=== PATIENT | female | born 1960 | race Caucasian/White ===

== ENCOUNTER → 2017-05-02 | Outpatient (REF) | payer OTHER ==
[~2017-05-02] MED LIST: ACET30TAB PO; COLA100C5 PO; IBUP-1022 PO; ZOFR20TA PO
== END ==
LOC: M SFHCWAGY 08:19
PROVIDERS: ATTEND Nurse Practitioner Women's Health
DX: Z12.4 Encounter for screening for malignant neoplasm of cervix (principal); N95.2 Postmenopausal atrophic vaginitis

== ENCOUNTER → 2017-07-21 | Outpatient (CLI) | payer OTHER ==
[2017-07-21 11:52] LABS: ALBUMIN 4.7 GM/DL (3.2-5.2); ALBUMIN/GLOBULIN RATIO 1.57 (1.00-1.93); ALKALINE PHOSPHATASE 132 U/L (45-117); ALT/SGPT 30 U/L (12-78); ANION GAP 6 MEQ/L (8-16); AST/SGOT 19 U/L (7-37); BILIRUBIN,TOTAL 0.3 MG/DL (0.2-1.0); BLOOD UREA NITROGEN 19 MG/DL (7-18); CALCIUM LEVEL 9.3 MG/DL (8.5-10.1); CARBON DIOXIDE LEVEL 31 MEQ/L (21-32); CHLORIDE LEVEL 104 MEQ/L (98-107); CREATININE FOR GFR 0.64 MG/DL (0.55-1.02); GLOMERULAR FILTRATION RATE > 60.0 (>51); GLUCOSE, FASTING 89 MG/DL (70-105); POTASSIUM SERUM 3.8 MEQ/L (3.5-5.1); SODIUM LEVEL 141 MEQ/L (136-145); TOTAL PROTEIN 7.7 GM/DL (6.4-8.2)
== END ==
LOC: M LAB 11:00
DX: Z01.818 Encounter for other preprocedural examination (principal)

== ENCOUNTER → 2018-08-07 | Outpatient (REF) | payer OTHER ==
[~2018-08-07] MED LIST changes: -ZOFR20TA PO; +ZOFR4TAB16 PO
[2018-08-09 14:16] LABS: HPV HYBRID CAPTURE II Negative (Negative)
== END ==
LOC: M SFHCWAGY 09:02
PROVIDERS: ATTEND Nurse Practitioner Women's Health
DX: Z12.4 Encounter for screening for malignant neoplasm of cervix (principal)
CPT/HCPCS: 87624; G0123

== ENCOUNTER → 2021-03-31 | Outpatient (REF) | payer OTHER, BC ==
[~2021-03-31] MED LIST changes: +ACET-716 PO; -ACET30TAB PO
== END ==
LOC: M SFHCWAGY 14:11
PROVIDERS: ATTEND Nurse Practitioner Women's Health
DX: Z12.4 Encounter for screening for malignant neoplasm of cervix (principal); Z01.419 Encounter for gynecological examination (general) (routine) without abnormal findings

== ENCOUNTER → 2021-04-16 | Outpatient (REF) | payer BC | LOC: M SFHCADAM 07:57 | PROVIDERS: ATTEND Physician Assistant | DX: I10 Essential (primary) hypertension (principal); E78.5 Hyperlipidemia, unspecified ==

== ENCOUNTER 2021-06-22 18:54 | Emergency (ER) | payer BC ==
[~2021-06-22] VITALS: Ht 154.9 cm; Wt 60.8 kg
[2021-06-22] MEDS ORDERED: LISI-898 PO (19:33)
[2021-06-22] MEDS ORDERED: NS 1,000 ML IV ONE (20:05)
[2021-06-22] MEDS ORDERED: MORPHINE 2 MG/ML 1ML VIAL (J2270) IV ONE (20:05)
[2021-06-22] MEDS ORDERED: ONDANSETRON 4MG/2ML VIAL IV ONE (20:05)
--- NOTE | 2021-06-22 20:06 | REP ---
INDICATION: fell COMPARISON: None. TECHNIQUE: AP, lateral, bilateral oblique views right wrist. FINDINGS: There is an oblique mildly displaced fracture involving the distal ulnar metadiaphysis with overlying soft tissue swelling. Distal radius and carpal bones appear intact. IMPRESSION: Mildly displaced oblique fracture of the distal ulnar metadiaphysis. <Electronically signed by Rasta Owens > 06/22/212002
[2021-06-22 20:44] LABS: BASO # 0.1 10^3/uL (0.0-0.2); BASO % 0.4 % (0.0-1.0); EOS # 0.1 10^3/uL (0.0-0.5); EOS % 0.4 % (0.0-3.0); HEMATOCRIT 41.2 % (36.0-47.0); LYMPH # 2.8 10^3/uL (1.5-5.0); LYMPH % 17.1 % (24.0-44.0); MEAN CORPUSCULAR HEMOGLOBIN 32.3 pg (27.0-33.0); MEAN CORPUSCULAR VOLUME 95.2 fl (80.0-96.0); MONO % 5.9 % (2.0-8.0); NEUTROPHILS # 12.4 10^3/uL (1.5-8.5); NEUTROPHILS % 75.8 % (36.0-66.0); PLATELET COUNT, AUTOMATED 398 10^3/uL (150-450); RED BLOOD COUNT 4.33 10^6/uL (4.00-5.40); WHITE BLOOD COUNT 16.4 10^3/uL (4.0-10.0)
[2021-06-22] MEDS ORDERED: HYDR-3713 PO (21:01)
[2021-06-22 21:02] LABS: BLOOD UREA NITROGEN 19 MG/DL (7-18); CALCIUM LEVEL 9.2 MG/DL (8.5-10.1); CARBON DIOXIDE LEVEL 29 MEQ/L (21-32); CHLORIDE LEVEL 105 MEQ/L (98-107); CREATININE FOR GFR 0.57 MG/DL (0.55-1.30); GLOMERULAR FILTRATION RATE > 60.0 (>51); GLUCOSE, FASTING 120 MG/DL (70-100); POTASSIUM SERUM 3.8 MEQ/L (3.5-5.1); SODIUM LEVEL 141 MEQ/L (136-145)
[2021-06-22] MEDS ORDERED: NORCO 5/325MG TABLET (BULK FOR ED) PO ONE (21:25)
[2021-06-22 21:42] VITALS: BP 152/90
--- NOTE | 2021-06-22 21:52 | REPVR ---
PROCEDURE INFORMATION: Exam: CT Right Upper Extremity Without Contrast, Wrist Exam date and time: 06/22/2021 8:47 PM Age: 60 years old Clinical indication: Injury or trauma; Fall; Fracture, traumatic injury; Closed fracture; Wrist; Right; Additional info: 2mm cuts, ulnar fracture, 3d recon TECHNIQUE: Imaging protocol: CT of the Right upper extremity without contrast was performed. Exam focused on the wrist. Radiation optimization: All CT scans at this facility use at least one of these dose optimization techniques: automated exposure control; mA and/or kV adjustment per patient size (includes targeted exams where dose is matched to clinical indication); or iterative reconstruction. COMPARISON: CR Wrist, complete RIGHT 06/22/2021 7:37 PM FINDINGS: Bones/joints: There is a comminuted distal ulnar fracture. The distal fracture part is laterally displaced by approximately 6 mm. The ulnar styloid. Soft tissues: Normal. IMPRESSION: There is a comminuted distal ulnar fracture. The distal fracture part is laterally displaced by approximately 6 mm. The ulnar styloid. Electronically signed by: Nam Armstrong On 06/22/2021 21:52:26 PM
[2021-06-22] MEDS ORDERED: MORPHINE 4 MG/ML 1ML VIAL/SYRINGE (J2270) IV ONE (22:00)
--- NOTE | 2021-06-23 09:12 | ER ---
ER CONSULTATION DATE: 06/22/2021 TIME: 8:30 p.m. SURGEON: James Odom MD CONSULTING SERVICE: Orthopedic surgery. HISTORY OF PRESENT ILLNESS: This is a 60-year-old female with right distal spiral fracture. The patient sustained a ground-level fall on the icy surface of her driveway. Hypertension, otherwise highly functioning female who is currently employed. She presented to the [facility] for further evaluation and treatment of the right wrist. Orthopedic surgery was consulted for further evaluation and treatment. REVIEW OF SYSTEMS: 14-point review of systems was negative unless otherwise described in the HPI above. PAST MEDICAL HISTORY: Hypertension. SURGICAL HISTORY: Lumpectomy. SOCIAL HISTORY: Nonsmoker, nondrinker, non-IV drug user. ALLERGIES: DENIES. PHYSICAL EXAMINATION: Alert and oriented to person, time and place. The patient's right upper extremity was neurovascularly intake; there were no breaks in the skin. She had tenderness to palpation and mild edema over the distal ulna. She had 5/5 motor strength to the musculature of the musculocutaneous, axillary, radial, median and ulnar nerve distributions. She had sensation intact to light touch to the musculocutaneous, axillary, radial, median and ulnar nerve distributions. She had palpable radial and ulnar pulse, brisk cap refill to the digits. IMAGING DATA: Radiographs demonstrate a distal ulna shaft fracture which is oblique in nature. CT scan is pending. IMPRESSION: 60-year-old female with the aforementioned injury requiring open reduction and internal fixation on staged basis. PLAN: At this point in time I believe the patient would benefit from open reduction and internal fixation of the distal ulna to stabilize the wrist joint. Given the oblique nature of the fracture plan will be to see the patient on June, for scheduled open reduction and internal fixation of the right distal ulna. The patient will be splinted in the ER by the provider in sugar-tong splint which will be removed and re-examined during her clinic visit and likely re-splinted at that time. Radiographs will not be required at her clinic visit on the June,.
== END 2021-06-22 22:10 | disposition home or self-care (01) ==
LOC: M ED 18:54
DX: S52.231A Displaced oblique fracture of shaft of right ulna, initial encounter for closed fracture (principal); W00.1XXA Fall from stairs and steps due to ice and snow, initial encounter; Y92.009 Unspecified place in unspecified non-institutional (private) residence as the place of occurrence of the external cause; I10 Essential (primary) hypertension; Z79.899 Other long term (current) drug therapy
CPT/HCPCS: 29125; 73110; 73200; 80048; 85025; 96361; 96374; 96375; 96376; 99284; J2270; J2405

== ENCOUNTER 2021-07-05 15:47 | Day surgery (SDC) | payer BC ==
[~2021-07-05] VITALS: Ht 157.5 cm; Wt 59.4 kg
[~2021-07-05 15:47] MED LIST changes: +HYDR-3713 PO; +LISI-898 PO
[2021-07-05] MEDS ORDERED: SUGAMMADEX SODIUM 500 MG/5 ML VIAL (BRIDION) As Ordered ONE (15:54)
[2021-07-05] MEDS ORDERED: dexameTHASONE 4 MG/ML 1ML VIAL (J1100 PER 1MG) As Ordered ONE (15:54)
[2021-07-05] MEDS ORDERED: ROCURONIUM BROMIDE 50 MG/5 ML VIAL As Ordered ONE ×2 (15:54→17:20)
[2021-07-05] MEDS ORDERED: MIDAZOLAM INJ 2MG/2ML VIAL (J2250 PER 1MG) As Ordered ONE (15:54)
[2021-07-05] MEDS ORDERED: LIDOCAINE 2% 100MG/5ML SDV (FOR ANES.) As Ordered ONE (15:54)
[2021-07-05] MEDS ORDERED: METOCLOPRAMIDE INJ 10MG/2ML VIAL (J2765 PER 1) As Ordered ONE (15:54)
[2021-07-05] MEDS ORDERED: propofoL 200 MG/20 ML VIAL As Ordered ONE (15:54)
[2021-07-05] MEDS ORDERED: fentaNYL 250 MCG/5 ML INJECTION (J3010) As Ordered ONE (15:54)
[2021-07-05] MEDS ORDERED: ONDANSETRON 4MG/2ML VIAL As Ordered ONE ×2 (15:54→19:55)
[2021-07-05] MEDS ORDERED: RALO1TAB PO (16:07)
[2021-07-05] MEDS ORDERED: ACET-907 PO (16:08)
[2021-07-05] MEDS ORDERED: ceFAZolin 2 GM/D5W 50 ML IV BAG (J0690 PER 500MG) As Ordered ONE (16:46)
[2021-07-05] MEDS ORDERED: BUPIVACAINE LIPOSOME/PF 1.3% 20ML VIAL (13.3MG/ML)(EXPAREL)(C9290 PER1MG) As Ordered ONE (17:16)
[2021-07-05] MEDS ORDERED: PHENYLephrine 500MCG 5ML (100MCG/ML) SYRINGE As Ordered ONE (17:20)
[2021-07-05] MEDS ORDERED: ceFAZolin 2 GM/D5W 50 ML IV BAG (J0690 PER 500MG) IV ONE (18:23)
[2021-07-05] MEDS ORDERED: TRANEXAMIC ACID 100 MG/ML 10ML VIAL IV ONE (18:26)
[2021-07-05] MEDS ORDERED: HYDROmorphone HCL 2MG/ML 1ML VIAL As Ordered ONE (18:30)
[2021-07-05] MEDS ORDERED: ePHEDrine SULFATE 25 MG/5 ML(5MG/ML) SYRINGE As Ordered ONE (18:31)
[2021-07-05] MEDS ORDERED: VANCOMYCIN 1000MG/20ML VIAL As Ordered ONE (18:53)
[2021-07-05] MEDS ORDERED: ONDANSETRON 4MG/2ML VIAL IV PRN ×2 (19:55→20:20)
[2021-07-05] MEDS ORDERED: LR 1,000 ML IV SCH ×2 (19:55→20:20)
[2021-07-05] MEDS ORDERED: oxyCODONE 5MG TAB PO PRN ×2 (19:55→20:20)
[2021-07-05] MEDS ORDERED: fentaNYL 100 MCG/2 ML INJECTION (J3010) IV PRN ×2 (19:55→20:20)
[2021-07-05] MEDS ORDERED: HYDROMORPHONE HCL 0.5 MG/ 0.5 ML SYRINGE (J1170 PER 1) IV PRN ×2 (19:55→20:20)
[2021-07-05] MEDS ORDERED: diphenhydrAMINE 50MG/ML VIAL (J1200) IV PRN (20:25)
[2021-07-05] MEDS ORDERED: PROMETHAZINE INJ 25 MG/ML VIAL (J2550) IV PRN (21:00)
--- NOTE | 2021-07-05 21:35 | RO ---
OPERATIVE NOTE DATE OF OPERATION: 07/05/2021 TIME: 5 p.m. PREOPERATIVE DIAGNOSIS: Right distal ulna closed fracture. POSTOPERATIVE DIAGNOSIS: Right distal ulna closed fracture. NAME OF OPERATION: Right distal ulna open reduction and internal fixation. SURGEON: James Odom MD MACHINE CLOTH MEASURER: Lalit Drew MD SUPERVISING ATTENDING: James Odom MD FINDINGS: The patient had a displaced and minimally comminuted right distal ulna fracture which is closed. INDICATIONS: This was a 60-year-old female who sustained a closed right distal ulna comminuted fracture on the June, after a ground level fall. The patient was initially seen at [facility] emergency department, reduced and placed in a sugar tongue splint. She returned to the OR today for the aforementioned procedure. ANESTHESIA: GETA. TOURNIQUET TIME: 96 minutes. ESTIMATED BLOOD LOSS: 20 mL. IV FLUIDS: Please see anesthesia report. IV ANTIBIOTICS: Please see anesthesia report. IMPLANTS: Arthrex. CULTURES: None. SPECIMENS: None. DESCRIPTION OF PROCEDURE: The patient was met in the preoperative holding area where the patient's operative extremity was signed, the patient's consent was confirmed to be correct, and the patient's identity was confirmed to be correct. The patient was then transported to the operating theater where she was placed on a supine position on a regular surgical flat-top bed. Her right upper extremity was placed onto a radiolucent hand table. A safety strap secured the patient to the bed. All bony prominences were well padded. The bilateral lower extremities had SCDs placed. A timeout was called to confirm the correct patient, correct operative extremity and correct consent. All staff were in agreement. The patient was then draped in the usual sterile fashion. We began the procedure by obtaining a fluoroscopic imaging of the patient's distal ulna fracture with AP and lateral views. I used this to ned out my longitudinal skin incision about the ulnar aspect on the patient's wrist, longitudinal in nature and in line with the ulnar aspect of the patient's ulna. I incised the skin sharply, taking care to protect the dorsal sensory branch of the ulnar nerve. This was protected throughout the remainder of the case. I then identified the retinaculum which was incised sharply intact with 0 Vicryl suture. I then used the 15 blade to elevate the periosteum overlying was fracture to the ulnar styloid distally and proximally approximately 2 cm. After elevating the periosteum, I was able to identify the fracture which was then cleaned with a scalpel, curette and hemostat. After the fracture was cleaned, I was able to obtain my anatomic length and using [id number] bone reducing clamps. Once this was established, I then performed fluoroscopic image on AP and lateral views to ensure that I was satisfied with the fracture reduction, I was. At this point in time, I place a 2-0 mini-modular plate into position and secured this with olive wires. I once again obtained AP and lateral views using fluoroscopic imaging. I was satisfied with the implant placement as well as the fracture reduction. I then secured the 2-0 plain in position using three distal locking screws using fluoroscopy to ensure that it did not violate the DRUJ or the distal radioulnar joint, it did not. Once this was secured distally to the fracture, I secured it proximally using one cortical screw followed by two locking screws into the intact proximal ulnar shaft. I then switched my initial cortical screw with a locking screw. At this point in time, I then copiously irrigated the surgical site using three liters of normal saline. I placed 2 mL of demineralized bone matrix in the comminuted portion of the fracture to ensure it started healing. At the conclusion of the case, I then placed approximately 1 gm of vancomycin powder directly on the plate. I used the periosteum to close over the plate in order to decrease its prominence and I repaired the retinaculum using 0 Vicryl. I closed the dermal layer using a 2-0 running Stratafix and closed the dermal layer using a running 3-0 nylon suture. I placed Xeroform over the surgical site and placed the patient's right forearm in a sugar tong splint with physiologic supination in order to stabilize the DRUJ. Of note, I did check the DRUJ which appeared to be stable with a shuck exam. However, in order to increase protection, I placed her in a sugar tong splint with supination and added a posterior slab proximal to the elbow joint in order to ensure that it did not flex or bend for two weeks. The patient was then extubated without complication and transported to the postanesthesia care unit. At this point in time, the patient will remain in the sugar tong splint with supination and a posterior slab extension for approximately two weeks. This will then be removed and she will be placed in a Munter cast with supination which will allow flexion and extension of the elbow but maintain the forearm in supination position. After two additional weeks of this for a total of four weeks of minimal mobilization at the wrist, the patient will go to occupational therapy where she will be fitted with a custom molded orthosis which will be removable in nature for an additional four weeks. The patient will follow up in the [facility] orthopedic clinic in two weeks for postoperative wound check medically on the July,. She will follow the distal ulnar open reduction and internal fixation rehabilitative protocol. She will be educated of the aforementioned findings. She will be given postoperative medication which will be sent to the pharmacy of her choice.
[2021-07-05] MEDS ORDERED: KETOROLAC 30 MG/ML 1ML VIAL IV ONE (22:30)
[2021-07-05 23:00] VITALS: BP 166/77
--- NOTE | 2021-07-06 08:41 | REP ---
INDICATION: RIGHT DISTAL ULNAR ORIF. COMPARISON: None. TECHNIQUE: Intraoperative fluoroscopic imaging using portable C-arm technique FINDINGS: Findings demonstrate satisfactory open reduction and fixation for distal ulnar fracture. Compression plate and screws in satisfactory position. Total fluoroscopic time 43 seconds. IMPRESSION: Satisfactory open reduction and fixation. <Electronically signed by Rasta Owens > 07/06/21 0861
== END 2021-07-05 23:14 | disposition home or self-care (01) ==
LOC: M SDC 15:47
PROVIDERS: ATTEND Orthopaedic Surgery
DX: S52.231A Displaced oblique fracture of shaft of right ulna, initial encounter for closed fracture (principal); W18.30XA Fall on same level, unspecified, initial encounter; Y92.89 Other specified places as the place of occurrence of the external cause; I10 Essential (primary) hypertension; Z79.899 Other long term (current) drug therapy
CPT/HCPCS: 25545; 76000; C1713; C1762; C9290; J0690; J1100; J1170; J1200; J1885; J2250; J2370; J2405; J2765; J3010; J3370; U0002

== ENCOUNTER → 2021-08-02 | Outpatient (RCR) | payer BC ==
[~2021-08-02] MED LIST changes: +ACET-907 PO; -LISI-898 PO; +LISI5TAB11 PO; +RALO1TAB PO
== END ==
LOC: M OT 09:00
PROVIDERS: ATTEND Orthopaedic Surgery
DX: S52.201D Unspecified fracture of shaft of right ulna, subsequent encounter for closed fracture with routine healing (principal)

== ENCOUNTER → 2021-08-17 | Outpatient (CLI) | payer BC | LOC: M SOG 08:36 | PROVIDERS: ATTEND Orthopaedic Surgery | DX: S52.201D Unspecified fracture of shaft of right ulna, subsequent encounter for closed fracture with routine healing (principal); W18.30XD Fall on same level, unspecified, subsequent encounter ==

== ENCOUNTER 2021-08-26 08:42 | Outpatient (RCR) | payer BC | END 2021-08-30 | LOC: M OT 08:42 | PROVIDERS: ATTEND Orthopaedic Surgery | DX: S52.201D Unspecified fracture of shaft of right ulna, subsequent encounter for closed fracture with routine healing (principal); W18.30XD Fall on same level, unspecified, subsequent encounter ==

== ENCOUNTER 2021-09-15 10:39 | Outpatient (RCR) | payer BC | END 2021-09-30 | LOC: M OT 10:39 | PROVIDERS: ATTEND Orthopaedic Surgery | DX: S52.201D Unspecified fracture of shaft of right ulna, subsequent encounter for closed fracture with routine healing (principal) ==

== ENCOUNTER → 2021-10-29 | Outpatient (CLI) | payer BC | LOC: M WHC 07:28 | PROVIDERS: ATTEND Physician Assistant | DX: Z12.31 Encounter for screening mammogram for malignant neoplasm of breast (principal) ==

== ENCOUNTER → 2022-03-01 | Outpatient (CLI) | payer BC ==
[2022-03-01 11:50] LABS: BLOOD UREA NITROGEN 16 MG/DL (7-18); CARBON DIOXIDE LEVEL 30 MEQ/L (21-32); CHLORIDE LEVEL 107 MEQ/L (98-107); CREATININE FOR GFR 0.62 MG/DL (0.55-1.30); GLOMERULAR FILTRATION RATE > 60.0 (>45); GLUCOSE, FASTING 98 MG/DL (70-100); POTASSIUM SERUM 4.2 MEQ/L (3.5-5.1); SODIUM LEVEL 140 MEQ/L (136-145)
== END ==
LOC: M PLALAB 08:02
PROVIDERS: ATTEND Nurse Practitioner Women's Health
DX: Z01.812 Encounter for preprocedural laboratory examination (principal)

== ENCOUNTER → 2022-03-10 | Outpatient (CLI) | payer BC | LOC: M PLAIMG 07:59 | PROVIDERS: ATTEND Nurse Practitioner Women's Health | DX: N60.92 Unspecified benign mammary dysplasia of left breast (principal); R92.2 Inconclusive mammogram; Z80.3 Family history of malignant neoplasm of breast ==

== ENCOUNTER → 2022-04-06 | Outpatient (CLI) | payer BC | LOC: M SOG 11:58 | PROVIDERS: ATTEND Orthopaedic Surgery Hand Surgery | DX: M25.542 Pain in joints of left hand (principal); M25.541 Pain in joints of right hand ==

== ENCOUNTER → 2022-07-15 | Outpatient (REF) | payer OTHER | LOC: M PLALAB 11:33 | PROVIDERS: ATTEND Nurse Practitioner Family | DX: Z12.4 Encounter for screening for malignant neoplasm of cervix (principal) ==

== ENCOUNTER → 2022-07-26 | Outpatient (REF) | payer OTHER ==
[2022-07-26 14:44] LABS: HEMATOCRIT 42.7 % (36.0-47.0); HEMOGLOBIN 13.7 g/dl (12.0-15.5); MEAN CORPUSCULAR HEMOGLOBIN 30.7 pg (27.0-33.0); MEAN CORPUSCULAR HGB CONC 32.1 g/dl (32.0-36.5); MEAN CORPUSCULAR VOLUME 95.7 fl (80.0-96.0); PLATELET COUNT, AUTOMATED 287 10^3/uL (150-450); RED BLOOD COUNT 4.46 10^6/uL (4.00-5.40)
[2022-07-26 14:53] LABS: CREATININE, URINE 25.9 MG/DL
[2022-07-26 14:54] LABS: MAU/CREAT RATIO 46.3 MCG/MG (0.0-30.0)
[2022-07-26 14:55] LABS: ALKALINE PHOSPHATASE 110 U/L (46-116); ALT/SGPT 24 U/L (7.0-40); AST/SGOT 22 U/L (<34); BILIRUBIN,TOTAL 0.2 MG/DL (0.3-1.2); BLOOD UREA NITROGEN 14 MG/DL (9-23); CALCIUM LEVEL 9.2 MG/DL (8.3-10.6); CARBON DIOXIDE LEVEL 29 MMOL/L (20-31); CHLORIDE LEVEL 104 MMOL/L (98-107); CHOLESTEROL LEVEL 195 MG/DL (<200); CHOLESTEROL RISK RATIO 3.22 (<5); CREATININE FOR GFR 0.55 MG/DL (0.55-1.30); FREE T4 0.96 NG/DL (0.89-1.76); GLOMERULAR FILTRATION RATE > 60.0 (>45); GLUCOSE, FASTING 86 MG/DL (74-106); HDL CHOLESTEROL 60.4 MG/DL (>40); NON-HDL-C 135 MG/DL; POTASSIUM SERUM 4.5 MMOL/L (3.5-5.1); SODIUM LEVEL 141 MMOL/L (136-145); THYROID STIMULATING HORMONE 0.768 uIU/ML (0.55-4.78); TOTAL PROTEIN 7.3 G/DL (5.7-8.2); TRIGLYCERIDES LEVEL 203 MG/DL (<150)
== END ==
LOC: M SFHCADAM 08:39
PROVIDERS: ATTEND Physician Assistant
DX: I10 Essential (primary) hypertension (principal); E78.5 Hyperlipidemia, unspecified

== ENCOUNTER → 2022-11-02 | Outpatient (CLI) | payer OTHER | LOC: M WHC 10:43 | PROVIDERS: ATTEND Nurse Practitioner Women's Health | DX: Z12.31 Encounter for screening mammogram for malignant neoplasm of breast (principal) ==

== ENCOUNTER → 2023-03-16 | Outpatient (REF) | payer OTHER ==
[2023-03-16 19:19] LABS: BLOOD UREA NITROGEN 16 MG/DL (9-23); CALCIUM LEVEL 9.3 MG/DL (8.3-10.6); CARBON DIOXIDE LEVEL 30 MMOL/L (20-31); CHLORIDE LEVEL 105 MMOL/L (98-107); CREATININE FOR GFR 0.62 MG/DL (0.55-1.30); GLOMERULAR FILTRATION RATE > 60.0 (>45); GLUCOSE, FASTING 112 MG/DL (74-106); POTASSIUM SERUM 4.1 MMOL/L (3.5-5.1); SODIUM LEVEL 144 MMOL/L (136-145)
== END ==
LOC: M SFHCADAM 15:09
PROVIDERS: ATTEND Physician Assistant
DX: I10 Essential (primary) hypertension (principal)

== ENCOUNTER → 2023-11-08 | Outpatient (CLI) | payer OTHER | LOC: M WHC 07:51 | PROVIDERS: ATTEND Nurse Practitioner Women's Health | DX: Z12.39 Encounter for other screening for malignant neoplasm of breast (principal); R92.323 Mammographic fibroglandular density, bilateral breasts; Z91.89 Other specified personal risk factors, not elsewhere classified; N60.92 Unspecified benign mammary dysplasia of left breast ==

== ENCOUNTER → 2023-12-20 | Outpatient (REF) | payer OTHER ==
[2023-12-20 13:51] LABS: ALBUMIN 3.8 G/DL (3.2-5.2); ALKALINE PHOSPHATASE 113 U/L (46-116); ALT/SGPT 45 U/L (7.0-40); AST/SGOT 27 U/L (<34); BILIRUBIN,TOTAL 0.4 MG/DL (0.3-1.2); BLOOD UREA NITROGEN 17 MG/DL (9-23); CALCIUM LEVEL 9.4 MG/DL (8.3-10.6); CARBON DIOXIDE LEVEL 31 MMOL/L (20-31); CHLORIDE LEVEL 106 MMOL/L (98-107); CHOLESTEROL LEVEL 189 MG/DL (<200); CHOLESTEROL RISK RATIO 3.46 (<5); CREATININE FOR GFR 0.55 MG/DL (0.55-1.30); GLOMERULAR FILTRATION RATE > 60.0 (>45); GLUCOSE, FASTING 88 MG/DL (74-106); HDL CHOLESTEROL 54.5 MG/DL (>40); LDL CHOLESTEROL 90.5 MG/DL (<100); NON-HDL-C 134.5 MG/DL; SODIUM LEVEL 141 MMOL/L (136-145); TOTAL PROTEIN 6.9 G/DL (5.7-8.2); TRIGLYCERIDES LEVEL 220 MG/DL (<150)
[2023-12-20 13:53] LABS: FREE T4 0.99 NG/DL (0.89-1.76); THYROID STIMULATING HORMONE 0.843 uIU/ML (0.55-4.78)
[2023-12-20 14:03] LABS: HEMOGLOBIN A1c 5.5 % (4.0-6.0)
[2023-12-20 14:12] LABS: CREATININE, URINE 74.4 MG/DL; MAU/CREAT RATIO 40.3 MCG/MG (0.0-30.0)
[2023-12-20 14:29] LABS: HEMATOCRIT 43.2 % (36.0-47.0); HEMOGLOBIN 14.1 g/dl (12.0-15.5); MEAN CORPUSCULAR HEMOGLOBIN 30.9 pg (27.0-33.0); MEAN CORPUSCULAR HGB CONC 32.6 g/dl (32.0-36.5); MEAN CORPUSCULAR VOLUME 94.7 fl (80.0-96.0); PLATELET COUNT, AUTOMATED 331 10^3/uL (150-450); RED BLOOD COUNT 4.56 10^6/uL (4.00-5.40); WHITE BLOOD COUNT 9.5 10^3/uL (4.0-10.0)
== END ==
LOC: M SFHCADAM 07:58
PROVIDERS: ATTEND Physician Assistant
DX: Z00.00 Encounter for general adult medical examination without abnormal findings (principal); I10 Essential (primary) hypertension; E78.5 Hyperlipidemia, unspecified; N60.92 Unspecified benign mammary dysplasia of left breast

== ENCOUNTER → 2024-02-13 | Outpatient (REF) | payer OTHER ==
[2024-02-13 14:23] LABS: BLOOD UREA NITROGEN 18 MG/DL (9-23); CALCIUM LEVEL 9.5 MG/DL (8.3-10.6); CARBON DIOXIDE LEVEL 32 MMOL/L (20-31); CHLORIDE LEVEL 103 MMOL/L (98-107); CREATININE FOR GFR 0.66 MG/DL (0.55-1.30); GLOMERULAR FILTRATION RATE > 60.0 (>45); GLUCOSE, FASTING 99 MG/DL (74-106); POTASSIUM SERUM 3.8 MMOL/L (3.5-5.1); SODIUM LEVEL 142 MMOL/L (136-145)
== END ==
LOC: M SFHCADAM 09:58
PROVIDERS: ATTEND Physician Assistant
DX: I10 Essential (primary) hypertension (principal)

== ENCOUNTER → 2024-03-06 | Outpatient (CLI) | payer OTHER ==
[~2024-03-06] MED LIST changes: +PROHANCE 279.3MG/ML 15ML VIAL ONE
== END ==
LOC: M PLAIMG 10:22
PROVIDERS: ATTEND Nurse Practitioner Women's Health
DX: N60.92 Unspecified benign mammary dysplasia of left breast (principal); Z91.89 Other specified personal risk factors, not elsewhere classified

== ENCOUNTER → 2024-09-30 | Outpatient (REF) | payer OTHER ==
[~2024-09-30] MED LIST changes: -PROHANCE 279.3MG/ML 15ML VIAL ONE
== END ==
LOC: M SFHCWAGY 12:44
PROVIDERS: ATTEND Nurse Practitioner Family
DX: Z12.4 Encounter for screening for malignant neoplasm of cervix (principal); Z11.51 Encounter for screening for human papillomavirus (HPV); Z01.419 Encounter for gynecological examination (general) (routine) without abnormal findings; Z77.9 Other contact with and (suspected) exposures hazardous to health

== ENCOUNTER → 2024-11-11 | Outpatient (CLI) | payer OTHER | LOC: M WHC 07:56 | PROVIDERS: ATTEND Nurse Practitioner Family | DX: Z12.31 Encounter for screening mammogram for malignant neoplasm of breast (principal) ==

== ENCOUNTER → 2025-01-14 | Outpatient (REF) | payer OTHER ==
[2025-01-14 14:05] LABS: ESTIMATED AVERAGE GLUCOSE 114.0 MG/DL (60-110)
[2025-01-14 14:29] LABS: CREATININE, URINE 128.8 MG/DL; MALB URINE SIEMENS 11.0 MG/L; MAU/CREAT RATIO 8.5 MCG/MG (0.0-30.0)
[2025-01-14 14:40] LABS: FREE T4 1.08 NG/DL (0.89-1.76)
[2025-01-14 14:41] LABS: ALT/SGPT 30.0 U/L (7.0-40); AST/SGOT 26.0 U/L (<34); CALCIUM LEVEL 9.6 MG/DL (8.3-10.6); CARBON DIOXIDE LEVEL 30.0 MMOL/L (20-31); CHLORIDE LEVEL 102.0 MMOL/L (98-107); CHOLESTEROL LEVEL 212.0 MG/DL (<200); CHOLESTEROL RISK RATIO 4.47 (<5); CREATININE FOR GFR 0.87 MG/DL (0.55-1.30); GLOMERULAR FILTRATION RATE 74.8 (>45); LDL CHOLESTEROL 108.6 MG/DL (<100); NON-HDL-C 164.6 MG/DL; POTASSIUM SERUM 4.0 MMOL/L (3.5-5.1); SODIUM LEVEL 145.0 MMOL/L (136-145); TRIGLYCERIDES LEVEL 280.0 MG/DL (<150)
[2025-01-14 14:50] LABS: PLATELET COUNT, AUTOMATED 367 10^3/uL (150-450)
== END ==
LOC: M SFHCADAM 09:46
PROVIDERS: ATTEND Physician Assistant
DX: I10 Essential (primary) hypertension (principal); E78.5 Hyperlipidemia, unspecified; Z13.1 Encounter for screening for diabetes mellitus

== ENCOUNTER → 2025-05-13 | Outpatient (CLI) | payer OTHER ==
[~2025-05-13] MED LIST changes: -IBUP-1022 PO; +IBUP600T42 PO; +PROHANCE 279.3MG/ML 15ML VIAL ONE
== END ==
LOC: M PLAIMG 12:12
PROVIDERS: ATTEND Surgery
DX: Z12.31 Encounter for screening mammogram for malignant neoplasm of breast (principal); Z80.3 Family history of malignant neoplasm of breast
CPT/HCPCS: 77049; A9579